=== PATIENT | male | born 1980 ===

== ENCOUNTER 2017-02-11 18:33 | Emergency (ER) | payer BC ==
[2017-02-11 18:44] VITALS: BP 140/94
--- NOTE | 2017-02-11 18:47 | UC ---
Lower Extremity/Ankle HPI - History of Current Complaint Chief Complaint: UCLowerExtremity Stated Complaint: FOOT INJURY Time Seen by Provider: 02/11/17 18:38 Hx Obtained From: Patient Onset/Duration: Sudden Onset Severity Initially: Moderate Severity Currently: Moderate Pain Scale Used: 0-10 Numeric - 8 Aggravating Factor(s): Standing Alleviating Factor(s): Rest Able to Bear Weight: Yes - Allergies/Home Medications Allergies/Adverse Reactions: Allergies Allergy/AdvReac Type Severity Reaction Status Date / Time No Known Allergies Allergy Verified 02/11/17 18:38 PMH/Surg Hx/FS Hx/Imm Hx Previously Healthy: Yes - Surgical History Surgical History: None - Family History Known Family History: Positive: Hypertension - Social History Alcohol Use: None Substance Use Type: None Smoking Status (MU): Light Every Day Tobacco Smoker Type: Cigarettes Review of Systems Constitutional: Negative Skin: Negative Eyes: Negative ENT: Negative Respiratory: Negative Cardiovascular: Negative Gastrointestinal: Negative Genitourinary: Negative Motor: Negative Neurovascular: Negative Musculoskeletal: Other: - right big toe pain/swelling Neurological: Negative Psychological: Negative All Other Systems Reviewed And Are Negative: Yes Physical Exam Triage Information Reviewed: Yes Vital Signs: Initial Vital Signs Temp 37.2 C 02/11/17 18:38 Pulse 75 02/11/17 18:38 Resp 16 02/11/17 18:38 BP 140/94 02/11/17 18:38 Pulse Ox 100 02/11/17 18:38 Vital Signs Reviewed: Yes Eye Exam: Normal ENT Exam: Normal Dental Exam: Normal Neck exam: Normal Neck: Positive: 1 Respiratory Exam: Normal Cardiovascular Exam: Normal Abdominal Exam: Normal Musculoskeletal: Positive: Other: - right big toe pain/swelling Neurological Exam: Normal Psychological Exam: Normal Skin Exam: Normal Lower Extremity Course/Dx - Differential Dx/Diagnosis Provider Diagnoses: right big toe tuft swelling/fx Discharge - Discharge Plan Condition: Stable Disposition: HOME Prescriptions: Cephalexin CAP* [Keflex CAP*] 500 mg PO TID #30 cap Patient Education Materials: Toe Fracture (ED) Referrals: Barry Anderson MD [Medical Doctor] - No Primary Care Phys,NOPCP [Primary Care Provider] -
--- NOTE | 2017-02-11 19:54 | RAD ---
HISTORY: Right first digit pain, trauma COMPARISONS: None VIEWS: 3, Frontal, lateral, and oblique views of the first digit of the right foot FINDINGS: BONE DENSITY: Normal. BONES: There is minimal fragmentation along the tuft of the distal talus of the first digit on the lateral projection. JOINTS: There is no arthropathy. ALIGNMENT: There is no dislocation. SOFT TISSUES: Unremarkable. OTHER FINDINGS: None. IMPRESSION: NONDISPLACED FRACTURE OF THE TUFT OF THE DISTAL PHALANX OF THE FIRST DIGIT
[2017-02-11] MEDS ORDERED: Tetan/Diph/Pertus SYR(Tdap)* 0.5 ML SYR(BOOSTRIX) use SYR IM ONE (20:05)
[2017-02-11] MEDS ORDERED: Cephalexin CAP* 500 MG PO ONE (20:31)
== END 2017-02-11 20:50 | disposition home or self-care (01) ==
LOC: UCEAST 18:33
DX: M79.89 Other specified soft tissue disorders (principal); S92.421A Displaced fracture of distal phalanx of right great toe, initial encounter for closed fracture; X58.XXXA Exposure to other specified factors, initial encounter; Y93.9 Activity, unspecified; Y92.9 Unspecified place or not applicable; Y99.9 Unspecified external cause status; Z72.0 Tobacco use
CPT/HCPCS: 90715; 99213; A9270-GY; G0463